=== PATIENT | female | born 2005 | race Caucasian/White ===

== ENCOUNTER 2025-01-24 22:58 | Emergency (ER) | payer OTHER, SELFPAY ==
[2025-01-24 23:22] VITALS: BP 118/72; PULSE 115; TEMP 36.7; O2SAT 96; BMI 34.7
--- NOTE | 2025-01-24 23:29 | PC.NURSE ---
this patient complains of right upper abdomen and rib pain, this pain has been going on and off for the past 5 years but tonight while at work(19:00) pain increased this patient denies any recent falls, injury or trauma to cause this right upper abdomen pain
[2025-01-25] VITALS (26 sets, daily range): BP systolic 102–125; BP diastolic 64–84; PULSE 82–93; TEMP 36.9–37; O2SAT 97–100
--- NOTE | 2025-01-25 00:16 | ED_ITS ---
HPI - Abdominal Pain General Chief Complaint: Abdominal Pain Stated Complaint: PAIN IN RIB CAGE Time Seen by Provider: 01/24/25 23:54 Source: patient Mode of arrival: walk-in Limitations: no limitations History of Present Illness HPI narrative: This 19-year-old female who is otherwise healthy and has been seeing several specialist for abdominal pain over the course of the past 5 years presents for evaluation of right upper quadrant abdominal pain that became more severe today. The patient has been seen in [place] and [facility]. She is scheduled to have an ultrasound in the near future of her right upper quadrant. The mother states that for the past 5 years she has been having intermittent abdominal pain. She has never had a CAT scan or ultrasound in the past but did have some kind of scan that took 5 hours to complete. The patient has not had an appetite for the past 5 days but last ate some chips. She denies any nausea. She has not had any fever. She denies any chest pain or shortness of breath. She does not drink or smoke. She denies the possibility of . She has been placed on nortriptyline for what is believed to be bowel spasms. She has also been on Hycosamine in the past and proton pump inhibitors. All of these medications have helped her briefly but then her pain recurs. Related Data Allergies Allergy/AdvReac Type Severity Reaction Status Date / Time amoxicillin Allergy Mild rash Verified 01/24/25 23:22 Review of Systems ROS Status of ROS 10 or more systems reviewed and unremark able except as noted in history and below PFSH PFSH Social History Little interest or pleasure in doing things: not at all Feeling down, depressed, or hopeless: not at all Exam Narrative Exam Narrative: Vital signs and Nursing Notes reviewed: Patient is afebrile, she is tachycardic with a pulse of 115, blood pressure is normal. She is not hypoxic with pulse ox of 96% on room air General: Awake, alert, oriented, uncomfortable appearing female, she is tearful, no respiratory distress HEENT: Normocephalic atraumatic, mucous membranes are moist and pink, eyes are clear, normal conjunctiva, no scleral icterus Chest: Lungs are clear to auscultation with good air entry, there is no wheezing rhonchi or rales appreciated no accessory muscle use, patient is speaking in complete sentences-no chest wall tenderness to palpation CVS: Regular rate and rhythm S1-S2, no murmurs rubs or gallops, pulses are brisk and equal bilaterally ABD: Soft, flat, nondistended, there is tenderness in the right upper quadrant with voluntary guarding. There is no right lower quadrant tenderness. Negative Rovsing sign, no epigastric or left upper quadrant tenderness. No pulsatile masses appreciated Extremities: Moving all extremities, no lower extremity tenderness or swelling noted, negative Homans' sign, pulses are brisk and equal bilaterally Skin: Normal in appearance without rash,pallor, petechiae or purpura Neuro: No focal deficits Constitutional Vital Signs, click to edit/add: Last Vital Signs Temp 98.6 F 01/25/25 01:43 Pulse 82 01/25/25 02:27 Resp 18 01/25/25 01:43 BP 102/64 01/25/25 03:30 Pulse Ox 100 01/25/25 03:30 O2 Del Method Room Air 01/24/25 23:22 Course Vital Signs Vital signs: Vital Signs Temperature 98.0 F 01/24/25 23:22 Pulse Rate 115 H 01/24/25 23:22 Respiratory Rate 18 01/24/25 23:22 Blood Pressure 118/72 01/24/25 23:22 Pulse Oximetry 96 01/24/25 23:22 Oxygen Delivery Method Room Air 01/24/25 23:22 Temperature 98.6 F 01/25/25 01:43 Pulse Rate 82 01/25/25 02:27 Respiratory Rate 18 01/25/25 01:43 Blood Pressure 102/64 01/25/25 03:30 Pulse Oximetry 100 01/25/25 03:30 Oxygen Delivery Method Room Air 01/24/25 23:22 MDM - Abdominal Pain MDM Narrative Medical decision making narrative: This 19-year-old female was brought to the emergency department by her mother for evaluation of right upper quadrant abdominal pain. The pain has been present for the past 5 days. The patient states she has not had much to eat or drink because she has not felt like eating and eating at times makes the abdominal pain worse. She has been seen by providers in [place] and at [facility] most recently. She is scheduled for an ultrasound in the near future. The patient states she last ate some chips but otherwise like previously stated has not had much of an appetite. She has not had a fever. She denies any nausea. She denies any chest pain or shortness of breath. She points to the right upper quadrant as area of greatest pain. She is tender in the right upper quadrant. There is no tenderness in the right lower quadrant. She has a negative Rovsing sign. An IV was placed and she was medicated with IV fluids, Toradol Pepcid and Zofran. On reevaluation she is feeling better and declined the need for anything else for pain. Routine labs are reviewed. She has an elevated white count at 16 with a stable hemoglobin. Electrolytes, liver function test and lipase are normal. D-dimer is negative. Her urine is negative for infection and test is negative. Clinically my suspicion is that the patient has biliary colic/gallbladder disease. CT scan of the abdomen pelvis with IV contrast was ordered and does not show any acute findings in the abdomen or pelvis. It clearly notated that the gallbladder appears normal and the appendix is normal. The CAT scan was discussed with the patient and her mom. They were given a copy of the report to share with their bridge worker at [facility]. The patient is feeling better but states her pain is starting to come back somewhat. She will be given a dose of [place]. I discussed pain management with the patient. This appears to be an ongoing mckinnon for her. Clinically her symptoms are consistent with biliary colic or biliary dyskinesia. She does have 2 studies coming up at [facility] in the near future. 1 is right upper quadrant ultrasound and another 1 is another test she is not certain of. I encouraged her to make a food diary and monitor what seems to exacerbate her abdominal pain. I explained to her that if it is her gallbladder it may be certain foods that are causing spasm. I did explain when she has the pain if she takes a half of a pain pill and a Zofran and avoid eating for period of time this may help the pain/spasm to resolve. She will be given a short course of [place], Zofran and Pepcid at the time of discharge. Lab Data Labs: Lab Results 01/25/25 01/25/25 Range/Units 00:15 00:25 WBC 16.2 H (4.0-11.0) 10^3/uL RBC 4.64 (4.20-5.40) 10^6/uL Hgb 13.3 (12.0-16.0) g/dL Hct 39.1 (36.0-48.0) % MCV 84.3 (81.0-99.0) fL MCH 28.7 (26.7-34.0) pg MCHC 34.0 (29.9-35.2) g/dL RDW 11.9 (11.0-15.0) % Plt Count 312 (150-450) 10^3/uL MPV 9.9 (9.5-13.5) fL Neut % (Auto) 71.0 (43.0-75.0) % Lymph % (Auto) 21.6 (20.5-60.0) % [place] % (Auto) 5.1 (1.7-12.0) % Eos % (Auto) 1.5 (0.9-7.0) % Baso % (Auto) 0.5 (0.2-2.0) % Neut # (Auto) 11.5 H (1.4-6.5) 10^3/uL Lymph # (Auto) 3.5 (1.2-3.8) 10^3/uL [place] # (Auto) 0.8 (0.3-0.8) 10^3/uL Eos # (Auto) 0.2 (0.0-0.7) 10^3/uL Baso # (Auto) 0.1 (0.0-0.1) 10^3/uL Abs Immat Gran (auto) 0.05 H (0.00-0.03) 10^3/uL Imm/Tot Granulo (auto) 0.3 (0.0-0.5) % D-Dimer 0.34 (<=0.59) mg/L FEU Sodium 140 (136-145) mmol/L Potassium 3.7 (3.5-5.1) mmol/L Chloride 103 (98-107) mmol/L Carbon Dioxide 26.3 (21.0-32.0) mmol/L Anion Gap 14.4 BUN 9.0 (6.4-19.3) mg/dL Creatinine 0.90 (0.55-1.02) mg/dL Est GFR ( Amer) >60 (>=60 mL/min/1.73m^2) Est GFR (Non-Af Amer) >60 (>=60 mL/min/1.73m^2) BUN/Creatinine Ratio 10.0 Glucose 88 (74-106) mg/dL Calcium 9.6 (8.5-10.1) mg/dL Total Bilirubin 0.5 (0.2-1.0) mg/dL AST 21 (15-37) U/L ALT 26 (14-59) U/L Alkaline Phosphatase 112 (46-116) U/L Total Protein 8.2 (6.4-8.2) g/dL Albumin 3.7 (3.4-5.0) g/dL Globulin 4.5 g/dL Albumin/Globulin Ratio 0.8 Lipase 29.0 (16.0-77.0) U/L Serum HCG, Qual Negative (NEGATIVE) Urine Color Yellow (YELLOW) Urine Clarity Clear (CLEAR) Urine pH 6.0 (5.0-9.0) Ur Specific [place] >=1.030 A (1.005-1.025) Urine Protein 30 A (NEG/TRACE) mg/dL Urine Glucose (UA) Negative (NEGATIVE) mg/dL Urine Ketones >=80 A (NEGATIVE) mg/dL Urine Occult Blood Negative (NEGATIVE) Urine Nitrite Negative (NEGATIVE) Urine Bilirubin Negative (NEGATIVE) Urine Urobilinogen 0.2 (0.2-1.0) EU/dL Ur Leukocyte Esterase Negative (NEGATIVE) Urine RBC None seen (0-2) #/HPF Urine WBC 0-2 A (NONE SEEN) #/HPF Ur Squamous Epith Cells Moderate A (NONE/RARE) #/LPF Urine Crystals Seen A (None Seen) #/HPF Calcium Oxalate Crystal Few Urine Bacteria Trace A (NONE SEEN) #/HPF Urine Casts Seen A (NONE SEEN) #/LPF Hyaline Casts Few Urine Mucus Moderate A (NONE SEEN) Ur Culture Indicated? No Urine HCG, Qual Negative (NEGATIVE) Discharge Plan Discharge Chief Complaint: Abdominal Pain Clinical Impression: Abdominal pain, RUQ Patient Disposition: Home, Self-Care Time of Disposition Decision: 04:02 Condition: Good Print Language: French Instructions: Biliary Colic (ED), Abdominal Pain (ED) Referrals: Physician,Non-Staff, [Primary Care Provider] - 1 week
[2025-01-25 00:37] LABS: Basophils Absolute Auto 0.1 10^3/uL (0.0-0.1); Basophils Percent Auto 0.5 % (0.2-2.0); Eosinophils Absolute Auto 0.2 10^3/uL (0.0-0.7); Eosinophils Percent Auto 1.5 % (0.9-7.0); Hematocrit 39.1 % (36.0-48.0); Hemoglobin 13.3 g/dL (12.0-16.0); Immature Granulocytes Abs Auto 0.05 10^3/uL (0.00-0.03); Immature Granulocytes Pct Auto 0.3 % (0.0-0.5); Lymphocytes Absolute Auto 3.5 10^3/uL (1.2-3.8); Lymphocytes Percent Auto 21.6 % (20.5-60.0); Mean Corpuscular Hemoglobin 28.7 pg (26.7-34.0); Mean Corpuscular Volume 84.3 fL (81.0-99.0); Mean Platelet Volume 9.9 fL (9.5-13.5); Monocytes Absolute Auto 0.8 10^3/uL (0.3-0.8); Monocytes Percent Auto 5.1 % (1.7-12.0); Neutrophils Absolute Auto 11.5 10^3/uL (1.4-6.5); Platelet Count 312 10^3/uL (150-450); Red Blood Count 4.64 10^6/uL (4.20-5.40); Red Cell Distribution Width 11.9 % (11.0-15.0); White Blood Count 16.2 10^3/uL (4.0-11.0)
[2025-01-25 00:39] LABS: Bilirubin Urine NEGATIVE (NEGATIVE); Blood Urine NEGATIVE (NEGATIVE); Clarity Urine CLEAR (CLEAR); Color Urine YELLOW (YELLOW); Glucose Urine UA NEGATIVE (NEGATIVE); Ketones Urine >=80 mg/dL (NEGATIVE); Leukocyte Esterase Urine NEGATIVE (NEGATIVE); Nitrite Urine NEGATIVE (NEGATIVE); Protein Urine 30 mg/dL (NEG/TRACE); Specific Gravity Urine >=1.030 (1.005-1.025); Urobilinogen Urine 0.2 EU/dL (0.2-1.0)
[2025-01-25 00:47] LABS: HCG Qualitative Urine* NEGATIVE (NEGATIVE); Internal Control Within Normal Limits
[2025-01-25 00:48] LABS: D Dimer 0.34 mg/L FEU (<=0.59)
[2025-01-25 00:51] LABS: Bacteria Urine TRACE #/HPF (NONE SEEN); Calcium Oxalate Crystals Urine FEW; Cast Seen? SEEN #/LPF (NONE SEEN); Crystals Seen? Seen #/HPF (None Seen); Hyaline Casts Urine FEW; Mucus Urine MODERATE (NONE SEEN); RBC Urine NONE SEEN #/HPF (0-2); Squamous Epithelial Cell Urine MODERATE #/LPF (NONE/RARE); Urine Culture Indicated NO; WBC Urine 0-2 #/HPF (NONE SEEN)
[2025-01-25 00:51] LABS: Alanine Aminotransferase 26 U/L (14-59); Albumin Globulin Ratio 0.8; Albumin Level 3.7 g/dL (3.4-5.0); Alkaline Phosphatase 112 U/L (46-116); Anion Gap 14.4; Aspartate Amino Transferase 21 U/L (15-37); Bilirubin Total 0.5 mg/dL (0.2-1.0); Calcium 9.6 mg/dL (8.5-10.1); Carbon Dioxide 26.3 mmol/L (21.0-32.0); Chloride 103 mmol/L (98-107); Estimated GFR (African America >60 (>=60 mL/min/1.73m^2); Estimated GFR (Non-African Ame >60 (>=60 mL/min/1.73m^2); Globulin 4.5 g/dL; Glucose 88 mg/dL (74-106); Potassium 3.7 mmol/L (3.5-5.1); Sodium 140 mmol/L (136-145); Total Protein 8.2 g/dL (6.4-8.2)
[2025-01-25] MEDS: KETOROLAC TROMETHAMINE 30 MG/ML VIAL IVP (00:52)
[2025-01-25] MEDS: ONDANSETRON PF 4 MG/2 ML VIAL IV (00:52)
[2025-01-25] MEDS: FAMOTIDINE/PF 20 MG/2 ML VIAL IV (00:52)
[2025-01-25] MEDS: 0.9 % SODIUM CHLORIDE 1,000 ML 1000 ML IV (00:52)
[2025-01-25 01:09] LABS: HCG Qualitative NEGATIVE (NEGATIVE); Internal Control Within Normal Limits
[2025-01-25] MEDS: 0.9 % SODIUM CHLORIDE 1,000 ML 150 ML IV (02:29)
[2025-01-25] MEDS: HYDROCODONE/ACET 5-325 MG TABLET 1 TAB PO (04:16)
[2025-01-25] MEDS: ONDANSETRON 4 MG RAPDIS TABLET SL (04:17)
--- NOTE | 2025-01-25 04:33 | PC.NURSE ---
i gave this patient and patient's mother verbal and written discharge orders along with 3 Rx, 1 work note and copy of CT results. this patient and patient's mother voices yes to understanding these. at time of discharge this patient and patient's mother voices no concerns, needs and this patient shows no signs of distress
== END 2025-01-25 04:32 | disposition home or self-care (01) ==
PROVIDERS: Emergency Provider Emergency Medicine
DX: R10.84 Generalized abdominal pain (principal); R10.11 Right upper quadrant pain
CPT/HCPCS: 36415; 74177; 80053; 81001; 83690; 84703; 85025; 85378; 96374; 96375; 99285; J1885; J2405; J3490; Q0162; Q9967